=== PATIENT | female | born 2000 ===

== ENCOUNTER 2020-02-03 07:56 | Day surgery (SDC) | payer BC ==
[~2020-02-03 07:56] MED LIST: Glycopyrrolate 0.2 MG/ML SDV ONE; Lactated Ringers 1,000 ML IV SCH; Lidocaine 2% 5 ML SDV ONE; Midazolam 1 MG/ML 2 ML SDV ONE; Propofol 200 MG/20 ML SDV ONE
--- NOTE | 2020-02-03 08:37 | PCM.PREANE ---
Preanesthetic Assessment - Anesthesia/Transfusion/Family Hx Anesthesia History: Prior Anesthesia Without Reaction Family History of Anesthesia Reaction: No Transfusion History: No Prior Transfusion(s) - Review of Systems General: No Symptoms Pulmonary: No Symptoms Cardiovascular: No Symptoms Gastrointestinal: Diarrhea Neurological: No Symptoms Other: Reports: None - Physical Assessment NPO Status Date: 02/03/20 NPO Status Time: 00:05 Vital Signs: Last Vital Signs Temp 36.6 C 02/03/20 08:30 Pulse 90 02/03/20 08:30 Resp 16 02/03/20 08:30 BP 129/84 02/03/20 08:30 Pulse Ox 97 02/03/20 08:30 Height: 1.6 m Weight: 63.957 kg ASA Class: 1 - Lab Values: Laboratory Last Values Urine HCG, Qual NEGATIVE (NEGATIVE) 02/03/20 08:05 - Allergies Allergies/Adverse Reactions: Allergies Allergy/AdvReac Type Severity Reaction Status Date / Time No Known Allergies Allergy Verified 02/03/20 08:28 - Acknowledgements Anesthesia Type Planned: MAC Pt an Appropriate Candidate for the Planned Anesthesia: Yes Alternatives and Risks of Anesthesia Discussed w Pt/Guardian: Yes Pt/Guardian Understands and Agrees with Anesthesia Plan: Yes PreAnesthesia Questionnaire HEENT History: Reports: Other (See Below) Other HEENT History: wears contacts/glasses Cardiovascular History: Reports: None Respiratory History: Reports: None Gastrointestinal History: Reports: Irritable Bowel Syndrome Genitourinary History: Reports: None DAIRY CONSULTANT History: Reports: None Musculoskeletal History: Reports: Fracture Other Musculoskeletal History: hx fx arm Neurological History: Reports: None Psychiatric History: Reports: Anxiety, Depression Endocrine/Metabolic History: Reports: None Hematologic History: Reports: None Immunologic History: Reports: None Oncologic (Cancer) History: Reports: None Dermatologic History: Reports: None - Past Surgical History Head Surgeries/Procedures: Reports: None HEENT Surgical History: Reports: Tonsillectomy Cardiovascular Surgical History: Reports: None Respiratory Surgical History: Reports: None GI Surgical History: Reports: Cholecystectomy Female Surgical History: Reports: Other (See Below) Other Female Surgeries/Procedures: surgery for vaginal septal defect Endocrine Surgical History: Reports: None Neurological Surgical History: Reports: None Musculoskeletal Surgical History: Reports: None Oncologic Surgical History: Reports: None Dermatological Surgical History: Reports: None - SUBSTANCE USE Tobacco Use Status *Q: Never Tobacco User Recreational Drug Type: Reports: Marijuana/Hashish Recreational Drug Last Use: over 2 weeks ago - HOME MEDS Home Medications: Home Meds ALPRAZolam [Alprazolam ER] 0.5 - 1 tab PO ASDIRECTED PRN 01/28/20 [History] Colesevelam HCl 1 - 2 tab PO BID PRN 01/28/20 [History] FLUoxetine HCl [Fluoxetine HCl] 40 mg PO DAILY 01/28/20 [History] buPROPion HCL [Bupropion Xl] 150 mg PO DAILY 01/28/20 [History] hydrOXYzine pamoate [Hydroxyzine Pamoate] 100 mg PO DAILY PRN 01/28/20 [History] valACYclovir HCl [valACYclovir] 2 tab PO ASDIRECTED PRN 01/28/20 [History] - CURRENT (IN HOUSE) MEDS Current Meds: Current Medications Lactated Ringer's (Ringers, Lactated) 1,000 mls @ 125 mls/hr IV ASDIRECTED AIME Last Admin: 02/03/20 08:28 Dose: 125 mls/hr Documented by: Discontinued Medications Glycopyrrolate (Robinul) Confirm Administered Dose 0.2 mg .ROUTE .STK-MED ONE Stop: 02/03/20 07:39 Lidocaine (Xylocaine-Mpf 2%) Confirm Administered Dose 5 ml .ROUTE .STK-MED ONE Stop: 02/03/20 07:39 Midazolam HCl (Versed 1 Mg/Ml) Confirm Administered Dose 2 mg .ROUTE .STK-MED ONE Stop: 02/03/20 07:45 Propofol (Diprivan 20 Ml) Confirm Administered Dose 200 mg .ROUTE .STK-MED ONE Stop: 02/03/20 07:45 Propofol (Diprivan 20 Ml) Confirm Administered Dose 400 mg .ROUTE .STK-MED ONE Stop: 02/03/20 07:46
--- NOTE | 2020-02-03 10:05 | PCM.OPNOTE ---
- General Post-Op/Procedure Note Date of Surgery/Procedure: 02/03/20 Operative Procedure(s): egd w bx. colonoscopy w bx Findings: see [id number] Pre Op Diagnosis: change in bowel habits and abd pain Post-Op Diagnosis: Same Anesthesia Technique: Moderate Sedation Primary Surgeon: Reid García Pathology: egd bx random colon bx Complications: None Condition: Good
--- NOTE | 2020-02-03 10:35 | PCM.POSTAN ---
POST ANESTHESIA ASSESSMENT - MENTAL STATUS Mental Status: Alert, Oriented - VITAL SIGNS Vital Signs: Last Vital Signs Temp 97.9 F 02/03/20 08:30 Pulse 85 02/03/20 10:29 Resp 14 02/03/20 10:29 BP 118/69 02/03/20 10:29 Pulse Ox 99 02/03/20 10:29 - RESPIRATORY Respiratory Status: Respiratory Rate WNL, Airway Patent, O2 Saturation Stable - CARDIOVASCULAR CV Status: Pulse Rate WNL, Blood Pressure Stable - GASTROINTESTINAL GI Status: No Symptoms - POST OP HYDRATION Hydration Status: Adequate & Stable
--- NOTE | 2020-02-03 10:37 | PCM48HPAN ---
Post Anesthesia Note - EVALUATION WITHIN 48HRS OF ANESTHETIC Vital Signs in Normal Range: Yes Patient Participated in Evaluation: Yes Respiratory Function Stable: Yes Airway Patent: Yes Cardiovascular Function Stable: Yes Hydration Status Stable: Yes Pain Control Satisfactory: Yes Nausea and Vomiting Control Satisfactory: Yes Mental Status Recovered: Yes Vital Signs: Last Vital Signs Temp 97.9 F 02/03/20 08:30 Pulse 85 02/03/20 10:29 Resp 14 02/03/20 10:29 BP 118/69 02/03/20 10:29 Pulse Ox 99 02/03/20 10:29
--- NOTE | 2020-02-03 10:52 | OR ---
SURGEON: Reid García MD DATE OF PROCEDURE: 02/03/2020 PREOPERATIVE DIAGNOSES: Change in bowel habit and increased diarrhea. POSTOPERATIVE DIAGNOSES: Change in bowel habit and increased diarrhea. PROCEDURES PERFORMED: Esophagogastroduodenoscopy with biopsy and colonoscopy with biopsy. DESCRIPTION OF PROCEDURE: EGD: The patient was taken to the endoscopy room, and with the LACE TEARING SUPERVISOR, Diprivan was administered. A well-lubricated EGD scope was gently inserted through the oropharynx, down the esophagus, passing through the gastroesophageal junction, into the stomach. The mucosa was examined upon the passage. Any etiology will be noted. Once in the stomach, we continued to advance to the distal antrum, passed through the pylorus into the second portion of the duodenum. Again, the mucosa was examined for any abnormality and etiology. The scope was then retrieved back to the stomach and then retroflexed to look at the fundus of the stomach. If a biopsy was indicated, we will biopsy the antrum, body, and gastroesophageal junction. The air will be sucked out while the scope is retrieved to reduce the patient's discomfort. The patient tolerated the procedure well. There were no intraoperative complications. Dr. García was present through the whole procedure. Prior to surgery, a time-out had been called, the patient identified, procedure identified and antibiotic administered. The patient was taken to the endoscopy room. A time out was called, patient identified, and procedure identified. Diprivan was then administrated. Patient went from awake to sleep, hearing doctor talking or door closing is normal. Perineum inspection and digital examination were then performed. A well- lubricated colonoscope was gently inserted through the rectum, advanced past the rectosigmoid junction, the descending colon, splenic flexure, transverse colon, hepatic flexure, ascending colon, arrived to the cecum. Cecum was identified as dictated in the finding. Then the scope was carefully withdrawn while attention was paid to the mucosal surface for any abnormality. Air will be sucked out during the scope withdrawal. At the rectum, retroflexed to examine any rectal diseases, fistula or hemorrhoids. During mucosal examination, abnormality or polyp was noted; picture taken and biopsy performed. Patient tolerated procedure well. There were no intraoperative complications, and Dr. García was present throughout the whole procedure. FINDINGS: EGD findings: 1. The patient is easily sedated with LACE TEARING SUPERVISOR and Diprivan, the patient is soundly snoring. 2. Oropharynx and proximal esophagus are free of disease. No stricture, inflammation, ulcer, or varicosity. Distal esophagus at GE junction at 40 shows minimal salmon-colored change, suggests mild acid reflux. Stomach rugae are normal in appearance. Antrum looks fine. Duodenum looks grossly normal. There was some bile in the duodenum. Biopsy done at antrum, body, GE junction at 40 and sucked out the gas while scope pulling out. There was no hiatal hernia observed when looked at the fundus of the stomach. During the whole study, there was no blood, ulcer, or food particle observed, none of those. There was bile in the duodenum. Colonoscopy findings: 1. The patient is easily sedated with LACE TEARING SUPERVISOR and Diprivan, the patient is soundly snoring. 2. Bowel prep is average, some liquid stool, no semi-formed stool, no stool ball. 3. Colon is rather straightforward. Cecum indicated by ileocecal fold, one-to- one indentation, appendiceal orifice. ScopeGuide is pointing south. Mucosa examined upon scope pulling out. The patient does not have diverticulosis, polyp, mass, growth, inflammation, stricture, AV malformation, ulcer, blood, none of those. The patient has mild internal hemorrhoids, no external hemorrhoids. Random biopsy done. The patient would benefit from repeat colonoscopy on as-needed basis as the patient is 20 years old. DMITRIY / NISREEN /[id number]
== END 2020-02-03 11:23 | disposition home or self-care (01) ==
LOC: MW.SDS 07:56
PROVIDERS: ATTEND Surgery
DX: K64.8 Other hemorrhoids (principal); K22.8 Other specified diseases of esophagus; K52.9 Noninfective gastroenteritis and colitis, unspecified; F41.9 Anxiety disorder, unspecified; F32.9 Major depressive disorder, single episode, unspecified; Z79.899 Other long term (current) drug therapy; Z90.49 Acquired absence of other specified parts of digestive tract; Z83.79 Family history of other diseases of the digestive system
CPT/HCPCS: 43239; 45380; 81025; 88305; 88312; J2001; J2250; J2704; J3490; J7120; 00813